=== PATIENT | female | born 1945 | race Caucasian/White ===

== ENCOUNTER 2021-06-11 09:25 | Outpatient (CLI) | payer OTHER | END 2021-06-11 09:27 | disposition home or self-care (01) | LOC: SONOGRAMA 09:25 | PROVIDERS: ATTEND Obstetrics & Gynecology | DX: N83.291 Other ovarian cyst, right side (principal); D25.1 Intramural leiomyoma of uterus; N95.1 Menopausal and female climacteric states ==

== ENCOUNTER 2021-07-07 09:31 | Outpatient (CLI) | payer OTHER ==
[2021-07-15] MEDS ORDERED: GLUMETZA500 MG PO (08:13)
[2021-07-15] MEDS ORDERED: CARVEDILOL25 M1 PO (08:14)
[2021-07-15] MEDS ORDERED: ALDACTONE25 MG PO (08:15)
[2021-07-15] MEDS ORDERED: LEVOXYL25 MCG PO (08:15)
[2021-07-15] MEDS ORDERED: CHILDREN'S ASPI81 MG PO (08:15)
[2021-07-15] MEDS ORDERED: COZAAR50 MG PO (08:16)
[2021-07-15] MEDS ORDERED: CALTRATE 600+D1 EAC1 PO (08:16)
[2021-07-15] MEDS ORDERED: ATORVASTATIN CA40 MG PO (08:16)
[2021-07-15] MEDS ORDERED: MAXIMUM D3325 MCG PO (08:17)
== END 2021-07-07 09:38 | disposition home or self-care (01) ==
LOC: RAD 09:31
PROVIDERS: ATTEND Obstetrics & Gynecology
DX: R05.8 Other specified cough (principal)

== ENCOUNTER 2021-07-16 06:47 | Day surgery (SDC) | payer OTHER ==
[~2021-07-16 06:47] MED LIST: ALDACTONE25 MG PO; ATORVASTATIN CA40 MG PO; CALTRATE 600+D1 EAC1 PO; CARVEDILOL25 M1 PO; CHILDREN'S ASPI81 MG PO; COZAAR50 MG PO; GLUMETZA500 MG PO; LEVOXYL25 MCG PO; MAXIMUM D3325 MCG PO
== END 2021-07-16 17:45 | disposition home or self-care (01) ==
LOC: CIR.AMB 06:47
PROVIDERS: ATTEND Obstetrics & Gynecology
DX: N84.0 Polyp of corpus uteri (principal); Z20.822 Contact with and (suspected) exposure to COVID-19